=== PATIENT | female | born 1960 | race African-American/Black ===

== ENCOUNTER 2018-04-23 21:47 | Emergency (ER) | END 2018-04-24 01:11 | disposition home or self-care (01) ==

== ENCOUNTER 2018-08-23 13:17 | Emergency (ER) | END 2018-08-23 17:20 | disposition home or self-care (01) ==

== ENCOUNTER 2019-05-06 13:55 | Emergency (ER) | payer OTHER ==
[~2019-05-06] VITALS: Ht 165.1 cm; Wt 141.1 kg
[~2019-05-06 13:55] MED LIST: CEPH-443 PO; ENAL10TA PO; IBUP-1542 PO; PHEN-538 PO
[2019-05-06 14:18] VITALS: BP 150/90; PULSE 78; RESP 16; Ht 165.1 cm; Wt 141.1 kg
[2019-05-06] MEDS ORDERED: ALBU18HF INHALATION (15:35)
[2019-05-06] MEDS ORDERED: BENZ-6 PO (15:35)
[2019-05-06] MEDS ORDERED: AMOX1TAB10 PO (15:36)
--- NOTE | 2019-05-06 15:38 | ERD ---
ER Documentation Chief Complaint Chief Complaint SOB X1 WEEK HPI Patient is a 58-year-old female presenting with sinus pain x1 week since she reports "she left the fan on her face". She states that she has a history of chronic sinus infections and has infections year-round. She states that she has felt hot but has not recorded a fever personally. She also reports night chills, coughing up clear phlegm, wheezing and occasional shortness of breath. She reports no history of asthma or COPD. She denies smoking. She states when she feels the pain in her sinuses feels very congested overall. She reports that she you will be traveling out of town in the next 2 days for a while and is wanting treatment to avoid any future health care issues. ROS All systems reviewed and are negative except as per history of present illness. Medications Home Meds Active Scripts Amoxicillin/Potassium Clav (Amox-Clav 875-125 mg Tablet) 875-125 mg Tab, 1 TAB PO BID for 7 Days, #14 TAB Prov:CHERI MUNGUIA PA-C 05/06/19 Albuterol Sulfate* (Ventolin HFA*) 18 Gm Hfa.aer.ad, 2 PUFF INHALATION Q6H, #1 INHALER Prov:CHERI MUNGUIA PA-C 05/06/19 Benzonatate* (Tessalon Perle*) 100 Mg Capsule, 100 MG PO TID, #30 CAP Prov:CHERI MUNGUIA PA-C 05/06/19 Ibuprofen* (Motrin*) 600 Mg Tab, 600 MG PO Q6, #30 TAB Prov:SIMON COLE PA-C 08/23/18 Enalapril Maleate* (Enalapril Maleate*) 10 Mg Tablet, 10 MG PO DAILY, #15 TAB Prov:CARRIE HIGGINS NP 04/24/18 Phenazopyridine Hcl* (Pyridium*) 200 Mg Tab, 200 MG PO TID PRN for URINARY PAIN, #6 TAB Prov:CARRIE HIGGINS NP 04/24/18 Cephalexin* (Keflex*) 500 Mg Capsule, 500 MG PO QID for 10 Days, CAP Prov:CARRIE HIGGINS NP 04/24/18 Reported Medications [None] Unknown Strength No Conflict Check 04/23/18 Allergies Allergies: Coded Allergies: No Known Allergy (Unverified , 04/23/18) PMhx/Soc Medical and Surgical Hx: pt denies Medical Hx Hx Miscellaneous Medical Probl: Yes (HTN) Hx Alcohol Use: No Hx Substance Use: No Hx Tobacco Use: No FmHx Family History: No diabetes Physical Exam Vitals Vital Signs Date Temp Pulse Resp B/P (MAP) Pulse Ox O2 O2 Flow FiO2 Time Delivery Rate 05/06/19 97.6 78 16 150/90 96 14:18 (110) Physical Exam Const: No acute distress Head: Atraumatic Eyes: Normal Conjunctiva, PERRLA ENT: Normal External Ears, Nose and Mouth. Tenderness to maxillary sinus. Increased tenderness when leaning forward. Congested nostrils Neck: Full range of motion. Resp: Clear to auscultation bilaterally, Cardio: Regular rate and rhythm Abd: Soft, non tender, obese abd Skin: No petechiae or rashes Ext: No cyanosis Neur: Awake and alert Psych: Normal Mood and Affect Procedures/MDM ED COURSE: The patient was stable throughout ED course. I kept the patient informed of laboratory and diagnostic imaging results throughout the ED course. MEDICATIONS GIVEN: [None.] MEDICAL DECISION MAKING: Patient is a 58-year-old female reporting sinus pain x7 days. She reports that she has chronic sinusitis all year-round has always had it throughout her life. Reports that this feels similar to her past incidences. During exam, he has tenderness to her maxillary and frontal sinuses in addition to increased pain when leaning her head forward. Also reports that she has been experiencing wheezing and occasional shortness of breath. Her lungs sounded mostly fine during exam. Patient also reports that she is traveling out of town and was wanting some sort of help in order to prevent future health care issues while she is out of town. There is a low suspicion for pneumonia, pneumothorax, mononucleosis, pulmonary embolism, epiglottitis, otitis media, otitis externa, viral/strep pharyngitis, sinusitis, myocarditis, pericarditis, endocarditis, peritonsillar abscess, mastoiditis, retropharyngeal abscess, meningitis, sepsis, acute abdomen or other emergent conditions. Vital signs were reviewed. Patient is afebrile. Patient was not hypoxic. Patient was hemodynamically stable. PRESCRIPTION: Albuterol, Augmentin, tesslon pearls DISCHARGE: At this time, patient is stable for discharge and outpatient management. I have instructed the patient to follow-up with his/her primary care physician in 1-2 days. I have discussed with the patient the possibility of needing to see a specialist for further workup and imaging studies if symptoms persist. I have instructed the patient to promptly return to the ER for any new or worsening symptoms including increased pain, fever, nausea, vomiting, weakness or LOC. The patient and/or family expressed understanding of and agreement with this plan. All questions were answered. Home care instructions were provided. Disclaimer: Inadvertent spelling and grammatical errors are likely due to EHR/dictation software use and do not reflect on the overall quality of patient care. Also, please note that the electronic time recorded on this note does not necessarily reflect the actual time of the patient encounter. Departure Diagnosis: Primary Impression: Sinusitis, acute Sinusitis location: unspecified location Recurrence: recurrent Qualified Codes: J01.91 - Acute recurrent sinusitis, unspecified Additional Impression: Cough Condition: Fair Patient Instructions: Cough, Chronic, Uncertain Cause, (Adult), Sinusitis, Abx Tx Referrals: [facility], [facility] YOU HAVE RECEIVED A MEDICAL SCREENING EXAM AND THE RESULTS INDICATE THAT YOU DO NOT HAVE A CONDITION THAT REQUIRES URGENT TREATMENT IN THE EMERGENCY DEPARTMENT. FURTHER EVALUATION AND TREATMENT OF YOUR CONDITION CAN WAIT UNTIL YOU ARE SEEN IN YOUR DOCTORS OFFICE WITHIN THE NEXT 1-2 DAYS. IT IS YOUR RESPONSIBILITY TO MAKE AN APPOINTMENT FOR FOLOW-UP CARE. IF YOU HAVE A PRIMARY DOCTOR --you should call your primary doctor and schedule an appointment IF YOU DO NOT HAVE A PRIMARY DOCTOR YOU CAN CALL OUR PHYSICIAN REFERRAL HOTLINE AT IF YOU CAN NOT AFFORD TO SEE A PHYSICIAN YOU CAN CHOSE FROM THE FOLLOWING [facility], [facility] [address] [facility] [address] [facility] [address] [facility] [address] [facility]. [facility] [address] [facility]. [facility]. [address] [facility]. [facility] YOU HAVE RECEIVED A MEDICAL SCREENING EXAM AND THE RESULTS INDICATE THAT YOU DO NOT HAVE A CONDITION THAT REQUIRES URGENT TREATMENT IN THE EMERGENCY DEPARTMENT. FURTHER EVALUATION AND TREATMENT OF YOUR CONDITION CAN WAIT UNTIL YOU ARE SEEN IN YOUR DOCTORS OFFICE WITHIN THE NEXT 1-2 DAYS. IT IS YOUR RESPONSIBILITY TO MAKE AN APPOINTMENT FOR FOLOW-UP CARE. IF YOU HAVE A PRIMARY DOCTOR --you should call your primary doctor and schedule and appointment IF YOU DO NOT HAVE A PRIMARY DOCTOR YOU CAN CALL OUR PHYSICIAN REFERRAL HOTLINE AT . IF YOU CAN NOT AFFORD TO SEE A PHYSICIAN YOU CAN CHOSE FROM THE FOLLOWING [facility] INSTITUTIONS: [facility] [address] [place] [address] [facility] [facility] [address] [place] [address] [facility] [address] [place] [address] Additional Instructions: Call your primary care doctor TOMORROW for an appointment during the next 1-2 days.See the doctor sooner or return here if your condition worsens before your appointment time. CHERI MUNGUIA PA-C May 06, 2019 15:38
== END 2019-05-06 15:57 | disposition home or self-care (01) ==
LOC: FTE 13:55
DX: J01.91 Acute recurrent sinusitis, unspecified (principal); I10 Essential (primary) hypertension
CPT/HCPCS: 99282